=== PATIENT | male | born 1930 | race Caucasian/White ===

== ENCOUNTER 2018-02-08 08:51 | Emergency (ER) | payer OTHER ==
[~2018-02-08] VITALS: Ht 165.1 cm; Wt 81.2 kg
[~2018-02-08 08:51] MED LIST: AVAPRO150 MG; AVAPRO75 MG; SYNTHROID50 MCG; SYNTHROID75 MCG
[2018-02-08] MEDS ORDERED: EFFEXOR XR75 MG (09:09)
== END 2018-02-08 18:37 | disposition home or self-care (01) ==
LOC: ER 08:51
DX: K44.9 Diaphragmatic hernia without obstruction or gangrene (principal); N28.1 Cyst of kidney, acquired; R10.31 Right lower quadrant pain; R10.13 Epigastric pain

== ENCOUNTER → 2018-12-11 | Outpatient (CLI) | payer OTHER ==
[~2018-12-11] MED LIST changes: +EFFEXOR XR75 MG
== END | disposition home or self-care (01) ==
LOC: NUCLEAR 07:23
DX: C34.31 Malignant neoplasm of lower lobe, right bronchus or lung (principal); C61 Malignant neoplasm of prostate; D51.3 Other dietary vitamin B12 deficiency anemia; I10 Essential (primary) hypertension; E03.9 Hypothyroidism, unspecified; E55.9 Vitamin D deficiency, unspecified
CPT/HCPCS: 78306; 78320; A9503

== ENCOUNTER 2019-06-21 10:22 | Emergency (ER) | payer OTHER ==
[~2019-06-21] VITALS: Ht 165.1 cm; Wt 81.6 kg
== END 2019-06-21 13:14 | disposition home or self-care (01) ==
LOC: ER 10:22
DX: M54.2 Cervicalgia (principal); R42 Dizziness and giddiness; E16.1 Other hypoglycemia

== ENCOUNTER 2019-07-11 08:51 | Emergency (ER) | payer OTHER ==
[~2019-07-11] VITALS: Ht 165.1 cm; Wt 81.6 kg
== END 2019-07-11 11:49 | disposition home or self-care (01) ==
LOC: ER 08:51
DX: M54.2 Cervicalgia (principal); M62.838 Other muscle spasm

== ENCOUNTER 2019-08-10 12:07 | Outpatient (CLI) | payer OTHER | END 2019-08-10 12:09 | disposition home or self-care (01) | LOC: SONOGRAMA 12:07 → MAMO-SONO 13:15 | DX: D21.11 Benign neoplasm of connective and other soft tissue of right upper limb, including shoulder (principal) ==

== ENCOUNTER 2019-09-09 06:35 | Outpatient (CLI) | payer OTHER | END 2019-09-09 06:39 | disposition home or self-care (01) | LOC: LAB 06:35 | DX: C34.31 Malignant neoplasm of lower lobe, right bronchus or lung (principal); C61 Malignant neoplasm of prostate; D51.3 Other dietary vitamin B12 deficiency anemia; I10 Essential (primary) hypertension; E03.8 Other specified hypothyroidism; E55.9 Vitamin D deficiency, unspecified; D68.8 Other specified coagulation defects; D50.8 Other iron deficiency anemias ==

== ENCOUNTER 2019-09-09 07:32 | Outpatient (CLI) | payer OTHER | END 2019-09-09 07:34 | disposition home or self-care (01) | LOC: TOM 07:32 | DX: C34.31 Malignant neoplasm of lower lobe, right bronchus or lung (principal); C61 Malignant neoplasm of prostate; D51.3 Other dietary vitamin B12 deficiency anemia; I10 Essential (primary) hypertension; E03.8 Other specified hypothyroidism; E55.9 Vitamin D deficiency, unspecified | CPT/HCPCS: 71260; Q9965 ==

== ENCOUNTER 2019-10-27 11:10 | Outpatient (CLI) | payer OTHER | END 2019-10-27 11:13 | disposition home or self-care (01) | LOC: RAD 11:10 | DX: Z01.811 Encounter for preprocedural respiratory examination (principal) ==

== ENCOUNTER 2019-12-16 09:01 | Outpatient (CLI) | payer OTHER | END 2019-12-16 09:08 | disposition home or self-care (01) | LOC: LAB 09:01 | DX: D50.8 Other iron deficiency anemias (principal); I10 Essential (primary) hypertension; D51.8 Other vitamin B12 deficiency anemias; E55.9 Vitamin D deficiency, unspecified; E78.2 Mixed hyperlipidemia; E03.8 Other specified hypothyroidism; R97.0 Elevated carcinoembryonic antigen [CEA]; R97.8 Other abnormal tumor markers; C34.31 Malignant neoplasm of lower lobe, right bronchus or lung; C61 Malignant neoplasm of prostate; D51.3 Other dietary vitamin B12 deficiency anemia ==

== ENCOUNTER → 2019-12-16 | Outpatient (CLI) | payer OTHER | END | disposition home or self-care (01) | LOC: TOM 08:15 | DX: C34.31 Malignant neoplasm of lower lobe, right bronchus or lung (principal); C61 Malignant neoplasm of prostate; D51.3 Other dietary vitamin B12 deficiency anemia; I10 Essential (primary) hypertension; E03.8 Other specified hypothyroidism; E55.9 Vitamin D deficiency, unspecified | CPT/HCPCS: 71260; Q9965 ==

== ENCOUNTER 2020-12-13 17:50 | Emergency (ER) | payer OTHER ==
[~2020-12-13] VITALS: Ht 165.1 cm; Wt 81.6 kg
== END 2020-12-13 22:35 | disposition home or self-care (01) ==
LOC: ER 17:50 → CPU-OBS 17:54 → ER 17:54 → CPU-OBS 22:35 → ER 12-14 00:40
DX: R07.89 Other chest pain (principal)

== ENCOUNTER 2021-09-02 11:27 | Emergency (ER) | payer OTHER ==
[~2021-09-02] VITALS: Ht 165.1 cm; Wt 83.9 kg
[2021-09-02] MEDS ORDERED: ALECENSA150 MG PO (12:14)
[2021-09-02] MEDS ORDERED: IPRATROPIU0.2 MG/1 M IH (19:22)
== END 2021-09-02 19:31 | disposition home or self-care (01) ==
LOC: ER 11:27
DX: J40 Bronchitis, not specified as acute or chronic (principal); Z20.822 Contact with and (suspected) exposure to COVID-19